=== PATIENT | male | born 1945 | race American Indian/Alaskan Native ===

== ENCOUNTER 2016-10-19 08:55 | Inpatient (IN) | payer MEDICAID, MEDICARE ==
[2016-10-19 09:13] VITALS: BMI 29.0
[2016-10-19 09:59] LABS: BASO # 0.1 K/uL (0.0-0.2); BASO % 1.1 % (0.0-2.0); EOS # 0.1 K/uL (0.0-0.7); HEMATOCRIT 41.3 % (35.0-51.0); LYMPH # 1.1 K/uL (1.0-4.3); LYMPH % 22.5 % (20.0-40.0); MEAN CELL VOLUME 87.1 fL (80.0-94.0); MEAN CORPUSCULAR HEMOGLOBIN 27.8 pg (27.0-31.0); MEAN CORPUSCULAR HGB CONC 31.9 g/dL (33.0-37.0); MONO # 0.3 K/uL (0.0-0.8); MONO % 6.4 % (0.0-10.0); NRBC % 0.1 % (0.0-2.0); WHITE BLOOD COUNT 4.8 K/uL (4.8-10.8)
[2016-10-19 10:04] LABS: URINE BILIRUBIN NEGATIVE (NEGATIVE); URINE BLOOD NEGATIVE (NEGATIVE); URINE COLOR Colorless (YELLOW); URINE GLUCOSE (UA) NORMAL (Normal); URINE KETONE NEGATIVE (NEGATIVE); URINE LEUKOCYTE ESTERASE NEG Leu/uL (Negative); URINE PROTEIN NEGATIVE (NEGATIVE); URINE UROBILINOGEN NORMAL mg/dL (0.2-1.0)
[2016-10-19 10:06] LABS: CHLORIDE 105 mmol/L (98-107); POTASSIUM 4.2 mmol/L (3.6-5.2); SODIUM 142 mmol/L (132-148)
[2016-10-19 10:07] LABS: INR 1.1
[2016-10-19 10:08] LABS: AST/SGOT 31 U/L (17-59); CARBON DIOXIDE 29 mmol/L (22-30); GFR AFRICAN-AMERICAN > 60
[2016-10-19 10:09] LABS: ALB/GLOB RATIO 1.2 (1.0-2.1); ALKALINE PHOSPHATASE 90 U/L (38-126); ALT/SGPT 61 U/L (21-72); BLOOD UREA NITROGEN 11 mg/dL (9-20); CALCIUM 8.7 mg/dl (8.6-10.4); GLUCOSE,RANDOM 91 mg/dL (75-110); TOTAL PROTEIN 5.7 g/dL (6.3-8.3)
--- NOTE | 2016-10-19 10:41 | RAD ---
HISTORY: SOB COMPARISON: None available. TECHNIQUE: Chest, one view. FINDINGS: LUNGS: Pulmonary venous congestion. Bilateral patchy opacities with central predominance, may be related to edema or infection. Correlate clinically. Please note that chest x-ray has limited sensitivity for the detection of pulmonary masses. PLEURA: No significant pleural effusion identified. No definite pneumothorax . CARDIOVASCULAR: Cardiomegaly. OSSEOUS STRUCTURES: Degenerative changes. VISUALIZED UPPER ABDOMEN: Unremarkable. OTHER FINDINGS: None. IMPRESSION: Pulmonary venous congestion. Bilateral patchy opacities with central predominance, may be related to edema or infection. Cardiomegaly. Correlate clinically.
--- NOTE | 2016-10-19 11:23 | C.PDOC ---
History Of Present Illness Patient is a 71 y/o male presents to the ED for evaluation of shortness of breath for the last 2 days. Patient also complains of bilateral lower extremity edema for the past month. Patient reports being seen at [facility] where he had echocardiogram done which showed EF 20%. Otherwise, denies any chest pain, headache, fever, chills, cough, back pain, or any other associated symptoms at this time. Chief Complaint (Nursing): Shortness Of Breath History Per: Patient History/Exam Limitations: no limitations Onset/Duration Of Symptoms: Days (2) Current Symptoms Are (Timing): Still Present Severity: None Pain Scale Rating Of: 0 Associated Symptoms: Ankle/Leg Swelling. denies: Fever, Chills, Sweating, Chest Pain, Bloody Cough, Productive Cough, Heart Racing, Leg/Calf Pain, Dizziness, Light-headedness, Anxiety, Tingling In Hands Or Face, Musle Spasms In Hands Or Feet Recent travel outside of the [place]: No Additional History Per: Patient Past Medical History Reviewed: Historical Data, Nursing Documentation, Vital Signs Vital Signs: Last Vital Signs Temp 98.7 F 10/19/16 13:43 Pulse 91 H 10/19/16 13:43 Resp 18 10/19/16 13:43 BP 141/99 H 10/19/16 13:43 Pulse Ox 99 10/19/16 13:43 - Medical History PMH: HTN, Hypercholesterolemia Family History: States: Unknown Family Hx - Social History Hx Alcohol Use: No Hx Substance Use: No - Immunization History Hx Tetanus Toxoid Vaccination: No Hx Influenza Vaccination: No Hx Pneumococcal Vaccination: No Review Of Systems Except As Marked, All Systems Reviewed And Found Negative. Constitutional: Negative for: Fever, Chills Cardiovascular: Positive for: Edema (bilateral lower extremity ). Negative for : Chest Pain, Palpitations, Light Headedness Respiratory: Positive for: Shortness of Breath. Negative for: Cough, Hemoptysis , Pleuritic Pain, Sputum Gastrointestinal: Negative for: Nausea, Vomiting Neurological: Negative for: Weakness, Numbness Physical Exam - Physical Exam Appears: Non-toxic, No Acute Distress Skin: Normal Color, Warm, Dry Head: Atraumatic, Normacephalic Eye(s): bilateral: Normal Inspection Oral Mucosa: Moist Neck: Normal ROM, Supple Chest: Symmetrical, No Tenderness Cardiovascular: Rhythm Regular, No Murmur Respiratory: No Rales, No Wheezing, Other (crackles to bases of lungs) Gastrointestinal/Abdominal: Soft, No Tenderness, No Distention Extremity: Normal ROM, No Tenderness, Pedal Edema (+2 edema to bilateral lower extremity), No Calf Tenderness, Capillary Refill (< 2 sec.), No Deformity Extremity: Bilateral: Atraumatic, Normal Color And Temperature, Normal ROM Pulses: Left Dorsalis Pedis: Normal, Right Dorsalis Pedis: Normal Neurological/Psych: Oriented x3, Normal Speech, Normal Cognition, Normal Motor, Normal Sensation ED Course And Treatment - Laboratory Results Result Diagrams: 10/19/16 09:54 10/19/16 09:54 ECG: Interpreted By Me, Viewed By Me ECG Rhythm: Sinus Rhythm ECG Interpretation: No Changes From Prior (11/28/14) Rate From EC (bpm) O2 Sat by Pulse Oximetry: 97 (RA) Pulse Ox Interpretation: Normal - Other Rad CXR X-Ray: Viewed By Me, Read By Radiologist Interpretation: HISTORY: SOB. COMPARISON: None available. TECHNIQUE: Chest , one view. FINDINGS: LUNGS: Pulmonary venous congestion. Bilateral patchy opacities with central predominance, may be related to edema or infection. Correlate clinically. Please note that chest x-ray has limited sensitivity for the detection of pulmonary masses. PLEURA: No significant pleural effusion identified. No definite pneumothorax . CARDIOVASCULAR: Cardiomegaly. OSSEOUS STRUCTURES: Degenerative changes. VISUALIZED UPPER ABDOMEN: Unremarkable. OTHER FINDINGS: None. IMPRESSION: Pulmonary venous congestion. Bilateral patchy opacities with central predominance, may be related to edema or infection. Cardiomegaly. Correlate clinically. Progress Note: EKG, CXR, blood work, urinalysis ordered and reviewed. Patient was treated with Lasix IVP. On re-eval, patient is resting comfortably with no wheezing, chest pain, or retractions. Oxygen saturation remains stable. Patient is alert and oriented x 3. Case was d/w who accepted patient to [facility] for observation. Disposition - Disposition Disposition: HOSPITALIZED Disposition Time: 11:30 Condition: FAIR - Clinical Impression Clinical Impression: CHF (congestive heart failure) - PA / MANAGER CORPORATE COMMUNICATIONS / Resident Statement MD/DO has reviewed & agrees with the documentation as recorded. - Scribe Statement The provider has reviewed the documentation as recorded by the Kimaniibtenzin Valdovinos All medical record entries made by the Scribe were at my direction and personally dictated by me. I have reviewed the chart and agree that the record accurately reflects my personal performance of the history, physical exam, medical decision making, and the department course for this patient. I have also personally directed, reviewed, and agree with the discharge instructions and disposition. Decision To Admit - Pt Status Changed To: Hospital Disposition Of: Observation - . Bed Request Type: Telemetry Admitting Physician: Haydee Valdovinos Patient Diagnosis: CHF (congestive heart failure)
--- NOTE | 2016-10-19 16:39 | CP.PCM.HP ---
Past Patient History - Past Social History Smoking Status: Never Smoked - CARDIAC Hx Hypercholesterolemia: Yes Hx Hypertension: Yes - PSYCHIATRIC Hx Substance Use: No - SURGICAL HISTORY Hx Surgeries: No - ANESTHESIA Hx Anesthesia: No Meds Allergies/Adverse Reactions: Allergies Allergy/AdvReac Type Severity Reaction Status Date / Time No Known Allergies Allergy Verified 10/19/16 09:09 Physical Exam - Constitutional Appears: Well - Head Exam Head Exam: ATRAUMATIC, NORMAL INSPECTION, NORMOCEPHALIC - Eye Exam Eye Exam: EOMI, Normal appearance, PERRL Pupil Exam: NORMAL ACCOMODATION, PERRL - ENT Exam ENT Exam: Mucous Membranes Moist, Normal Exam - Neck Exam Neck exam: Positive for: Normal Inspection - Respiratory Exam Respiratory Exam: Decreased Breath Sounds - Cardiovascular Exam Cardiovascular Exam: REGULAR RHYTHM, +S1, +S2 - GI/Abdominal Exam GI & Abdominal Exam: Diminished Bowel Sounds, Soft - Rectal Exam Rectal Exam: Deferred Results - Vital Signs Recent Vital Signs: Last Vital Signs Temp 98.1 F 10/19/16 16:32 Pulse 103 H 10/19/16 16:32 Resp 24 10/19/16 16:32 BP 134/98 H 10/19/16 16:32 Pulse Ox 98 10/19/16 16:32 - Labs Result Diagrams: 10/19/16 09:54 10/19/16 09:54
[2016-10-19] MEDS ORDERED: Enoxaparin 40 mg Syringe SC STA (17:27)
[2016-10-19] MEDS ORDERED: Enoxaparin 40 mg Syringe ONE (17:52)
--- NOTE | 2016-10-19 18:26 | CARD ---
APPROVED REPORT EKG Measurement Heart [id number] MI [id number] <Conclusion> Poor data quality, interpretation may be adversely affected Normal sinus rhythm Possible Left atrial enlargement Left ventricular hypertrophy T wave abnormality, consider lateral ischemia Prolonged QT Abnormal ECG
[2016-10-20] MEDS ORDERED: Albuterol-Ipratrop 3 mg / 0.5 (3 ml) UD INH STA (03:02)
--- NOTE | 2016-10-20 07:30 | CP.PCM.CON ---
<KianaKeatonaminataBladimir tinajero - Last Filed: 10/20/16 07:31> History of Present Illness - History of Present Illness History of Present Illness: CC: SOB HPI: This is a 71yo M with a PMhx of IGT, HTN, ischemic cardiomyopathy w/ CHF systolic dysfunction w/ systolic EF of 20% as per ID hospital in [facility] [place] who is coming to the hospital after progressive shortness of breath on exertion these past few months. The patient states he used to receive medical care in [facility] at the ID, but recently started going to doctors here in [place] because his girlfriend is currently in a mcfp here. He normally can walk 10-12 blocks, and up 2-3 flights of stairs without getting short of breath but has been becoming increasingly bedbound these past few months. Patient states he used to take carvedilol in [place], but has not taken it since he switched care here. He does not remember the dose. He reportedly feels "much better today and wants to go home". He denies all symptoms; no DEVI, CP, SOB, abdominal pain, N/V/D Pmhx: as above Meds: Furosemide, Atorvastatin, Lisinopril, Aspirin, Potassium Allergies: None Surgeries: Denies FamilyHx: CAD, HTN, DM Social: , lives in [place], lives alone independent in all IADL and ADL, normally physically capable of 10-12 blocks and 2-3 flights of stairs Past Patient History - Infectious Disease Hx of Infectious Diseases: None - Past Medical History & Family History Past Medical History?: Yes - Past Social History Smoking Status: Never Smoked - CARDIAC Hx Cardiac Disorders: Yes Hx Congestive Heart Failure: Yes Hx Hypercholesterolemia: Yes Hx Hypertension: Yes - PULMONARY Hx Respiratory Disorders: No - NEUROLOGICAL Hx Neurological Disorder: No - HEENT Hx HEENT Problems: No - RENAL Hx Chronic Kidney Disease: No - ENDOCRINE/METABOLIC Hx Endocrine Disorders: No - HEMATOLOGICAL/ONCOLOGICAL Hx Blood Disorders: No - INTEGUMENTARY Hx Dermatological Problems: No - MUSCULOSKELETAL/RHEUMATOLOGICAL Hx Musculoskeletal Disorders: No Hx Falls: No - GASTROINTESTINAL Hx Gastrointestinal Disorders: No - GENITOURINARY/GYNECOLOGICAL Hx Genitourinary Disorders: No - PSYCHIATRIC Hx Psychophysiologic Disorder: No Hx Substance Use: No - SURGICAL HISTORY Hx Surgeries: No - ANESTHESIA Hx Anesthesia: No Meds Allergies/Adverse Reactions: Allergies Allergy/AdvReac Type Severity Reaction Status Date / Time No Known Allergies Allergy Verified 10/19/16 09:09 - Medications Medications: Current Medications Aspirin (Ecotrin) 81 mg PO DAILY [facility] Enoxaparin Sodium (Lovenox) 40 mg SC DAILY [facility] Furosemide (Lasix) 40 mg IVP DAILY [facility] Lisinopril (Zestril) 2.5 mg PO DAILY [facility] Potassium Chloride (Klor-Con 10) 10 meq PO DAILY [facility] Rosuvastatin Calcium (Crestor) 40 mg PO HS [facility] Last Admin: 10/19/16 21:40 Dose: 40 mg Physical Exam - Constitutional Appears: Non-toxic - Head Exam Head Exam: ATRAUMATIC - Eye Exam Eye Exam: EOMI Pupil Exam: PERRL - ENT Exam ENT Exam: Mucous Membranes Moist - Respiratory Exam Respiratory Exam: NORMAL BREATHING PATTERN. absent: Chest Wall Tenderness, Decreased Breath Sounds, Clear to Auscultation Bilateral (crackles b/l lower lobes), Rhonchi, Wheezes, Respiratory Distress, Stridor - Cardiovascular Exam Cardiovascular Exam: REGULAR RHYTHM, +S1, +S2 - GI/Abdominal Exam GI & Abdominal Exam: Normal Bowel Sounds, Soft - Extremities Exam Extremities exam: Positive for: pedal edema. Negative for: calf tenderness - Neurological Exam Neurological exam: Alert, Oriented x3 - Psychiatric Exam Psychiatric exam: Normal Affect - Skin Skin Exam: Normal Color Results - Vital Signs Recent Vital Signs: Last Vital Signs Temp 98 F 10/20/16 00:00 Pulse 90 10/20/16 01:00 Resp 20 10/20/16 00:00 BP 144/98 H 10/20/16 03:08 Pulse Ox 95 10/20/16 00:00 - Labs Result Diagrams: 10/19/16 09:54 10/19/16 09:54 Labs: Laboratory Results - last 24 hr 10/19/16 18:39 Total Creatine Kinase 189 H CK-MB (Mass) 3.01 Troponin I, Quant 0.0630 Assessment & Plan - Assessment and Plan (Free Text) Assessment: 71yo M admitted to the hospital for acute on chronic CHF exacerbation Acute on Chronic CHF exacerbation; systolic dysfunction reported 20% EF -Lifevest recommended given patients high baseline functional capacity if EF indeed 20% -repeat echo as we have none on file here; f/u results -patient would benefit from low dose carvedilol that he was previously on; benefit in systolic CHF proven; will add -continue with GINO, Aspirin, and statin given ACS in the past -CRISTINA have been trending down; ACS acutely ruled out -will continue with all other medications Will continue to follow Will discuss with attending Dr. Edie Beard PGY2 Cardiology Note for Dr. Irizarry <Lizet Irizarry - Last Filed: 10/21/16 07:41> Meds - Medications Medications: Current Medications Aspirin (Ecotrin) 81 mg PO DAILY [facility] Last Admin: 10/20/16 10:26 Dose: 81 mg Carvedilol (Coreg) 3.125 mg PO BID [facility] Last Admin: 10/20/16 17:15 Dose: 3.125 mg Enoxaparin Sodium (Lovenox) 40 mg SC DAILY [facility] Last Admin: 10/20/16 10:27 Dose: 40 mg Furosemide (Lasix) 40 mg IVP DAILY [facility] Last Admin: 10/20/16 10:26 Dose: 40 mg Lisinopril (Zestril) 2.5 mg PO DAILY [facility] Last Admin: 10/20/16 10:26 Dose: 2.5 mg Potassium Chloride (Klor-Con 10) 10 meq PO DAILY [facility] Last Admin: 10/20/16 10:26 Dose: 10 meq Rosuvastatin Calcium (Crestor) 40 mg PO HS [facility] Last Admin: 10/20/16 21:02 Dose: 40 mg Results - Vital Signs Recent Vital Signs: Last Vital Signs Temp 98 F 10/20/16 23:45 Pulse 69 10/21/16 01:00 Resp 20 10/20/16 23:45 BP 122/80 10/20/16 23:45 Pulse Ox 96 10/20/16 23:45 - Labs Result Diagrams: 10/19/16 09:54 10/19/16 09:54 Labs: Laboratory Results - last 24 hr 10/20/16 11:14 Total Creatine Kinase 135 CK-MB (Mass) 2.46 Troponin I, Quant 0.0560 Attending/Attestation - Attestation I have personally seen and examined this patient.: No I have fully participated in the care of the patient.: Yes I have reviewed all pertinent clinical information: Yes
[2016-10-20] MEDS: Potassium Chloride 10 mEq ER Tab PO SCH (10:26)
[2016-10-20] MEDS: Enoxaparin 40 mg Syringe SC SCH (10:27)
--- NOTE | 2016-10-20 14:43 | CARD ---
APPROVED REPORT EXAM: Two-dimensional and M-mode echocardiogram with Doppler and color Doppler. Other Information Quality : GoodRhythm : NSR INDICATION Congestive Heart Failure PNEUMONIA 2D DIMENSIONS IVSd1.2 (0.7-1.1cm)LVDd7.2 (3.9-5.9cm) LVOT Diameter2.3 (1.8-2.4cm)PWd1.1 (0.7-1.1cm) RVOT Diameter2.3 cmLVDs6.4 (2.5-4.0cm) FS (%) 10.6 %LVEF (%)22.3 (>50%) M-Mode DIMENSIONS Left Atrium (MM)5.14 (2.5-4.0cm)IVSd1.40 (0.7-1.1cm) Aortic Root3.88 (2.2-3.7cm)LVDd3.72 (4.0-5.6cm) Aortic Cusp Exc.2.21 (1.5-2.0cm)PWd1.25 (0.7-1.1cm) FS (%) 75 %LVDs6.51 (2.0-3.8cm) Aortic Valve LVOT Peak Zmzxhgug78.7cm/sLVOT VTI16.08cm Mitral Valve MV E Phfxknuv70.9cm/sMV A Ckglgvzi77.4cm/sE/A ratio0.4 TDI E/Lateral E'0.0E/Medial E'0.0 Pulmonary Valve RVOT VTI10.9cm Tricuspid Valve TR Peak Rpnmpccd140ly/sTR Peak Gr.[id number] LEFT VENTRICLE The Left Ventricle is severely dilated. There is borderline concentric left ventricular hypertrophy. The systolic function is severely impaired. There is global hypokinesis of the left ventricle. Transmitral Doppler flow pattern is Grade I-abnormal relaxation pattern. Spontaneous contrast is noted consistent with the low flow state. RIGHT VENTRICLE The right ventricle is normal size. There is normal right ventricular wall thickness. The right ventricular systolic function is normal. ATRIA The left atrium is moderately dilated. The right atrium size is normal. a PFO with left to right flow AORTIC VALVE There is trace aortic regurgitation. MITRAL VALVE The mitral valve is moderately thickened but opens well. Mitral regurgitation is moderate to severe. PULMONIC VALVE There is mild pulmonic valvular regurgitation. GREAT VESSELS The aortic root is normal in size. The IVC is normal in size and collapses >50% with inspiration. <Conclusion> The Left Ventricle is severely dilated. There is borderline concentric left ventricular hypertrophy. The systolic function is severely impaired. There is global hypokinesis of the left ventricle. Spontaneous contrast is noted consistent with the low flow state. Transmitral Doppler flow pattern is Grade I-abnormal relaxation pattern. Mitral regurgitation is moderate to severe. a PFO with left to right flow
--- NOTE | 2016-10-20 18:00 | CP.PCM.PN ---
Subjective - Date & Time of Evaluation Date of Evaluation: 10/20/16 Time of Evaluation: 11:20 - Subjective Subjective: clinically same Objective - Vital Signs/Intake and Output Vital Signs (last 24 hours): Temp Pulse Resp BP Pulse Ox 98.5 F 78 20 128/82 97 10/20/16 16:17 10/20/16 16:17 10/20/16 16:17 10/20/16 16:17 10/20/16 16:17 Intake and Output: 10/20/16 10/20/16 06:59 18:59 Intake Total 300 460 Output Total 2000 Balance 300 -1540 - Medications Medications: Current Medications Aspirin (Ecotrin) 81 mg PO DAILY [facility] Last Admin: 10/20/16 10:26 Dose: 81 mg Carvedilol (Coreg) 3.125 mg PO BID [facility] Last Admin: 10/20/16 17:15 Dose: 3.125 mg Enoxaparin Sodium (Lovenox) 40 mg SC DAILY [facility] Last Admin: 10/20/16 10:27 Dose: 40 mg Furosemide (Lasix) 40 mg IVP DAILY [facility] Last Admin: 10/20/16 10:26 Dose: 40 mg Lisinopril (Zestril) 2.5 mg PO DAILY [facility] Last Admin: 10/20/16 10:26 Dose: 2.5 mg Potassium Chloride (Klor-Con 10) 10 meq PO DAILY [facility] Last Admin: 10/20/16 10:26 Dose: 10 meq Rosuvastatin Calcium (Crestor) 40 mg PO HS [facility] Last Admin: 10/19/16 21:40 Dose: 40 mg - Labs Labs: PT 12.5 SECONDS (9.7-12.2) H 10/19/16 09:54 INR 1.1 10/19/16 09:54 APTT 34 SECONDS (21-34) 10/19/16 09:54 - Constitutional Appears: Well - Head Exam Head Exam: ATRAUMATIC, NORMAL INSPECTION, NORMOCEPHALIC - Eye Exam Eye Exam: EOMI, Normal appearance, PERRL Pupil Exam: NORMAL ACCOMODATION, PERRL - ENT Exam ENT Exam: Mucous Membranes Moist, Normal Exam - Neck Exam Neck Exam: Full ROM, Normal Inspection. absent: Lymphadenopathy - Respiratory Exam Respiratory Exam: Decreased Breath Sounds - Cardiovascular Exam Cardiovascular Exam: REGULAR RHYTHM, +S1, +S2 - GI/Abdominal Exam GI & Abdominal Exam: Soft, Diminished Bowel Sounds - Rectal Exam Rectal Exam: Deferred
--- NOTE | 2016-10-21 08:50 | CP.PCM.CON ---
<KianaKeatonaminataBldaimir tinajero - Last Filed: 10/21/16 08:51> History of Present Illness - History of Present Illness History of Present Illness: CC: SOB HPI: This is a 71yo M with a PMhx of IGT, HTN, ischemic cardiomyopathy w/ CHF systolic dysfunction w/ systolic EF of 20% as per [facility] [facility] who is coming to the hospital after progressive shortness of breath on exertion these past few months. The patient states he used to receive medical care in [facility] at the [place], but recently started going to doctors here in [place] because his girlfriend is currently in a snf here. He normally can walk 10-12 blocks, and up 2-3 flights of stairs without getting short of breath but has been becoming increasingly bedbound these past few months. Patient states he used to take carvedilol in [place], but has not taken it since he switched care here. He does not remember the dose. He reportedly feels "much better today and wants to go home". He denies all symptoms; no DEVI, CP, SOB, abdominal pain, N/V/D Pmhx: as above Meds: Furosemide, Atorvastatin, Lisinopril, Aspirin, Potassium Allergies: None Surgeries: Denies FamilyHx: CAD, HTN, DM Social: , lives in [place], lives alone independent in all IADL and ADL, normally physically capable of 10-12 blocks and 2-3 flights of stairs Review of Systems - Constitutional Constitutional: As Per HPI Past Patient History - Infectious Disease Hx of Infectious Diseases: None - Past Medical History & Family History Past Medical History?: Yes - Past Social History Smoking Status: Never Smoked - CARDIAC Hx Cardiac Disorders: Yes Hx Congestive Heart Failure: Yes Hx Hypercholesterolemia: Yes Hx Hypertension: Yes - PULMONARY Hx Respiratory Disorders: No - NEUROLOGICAL Hx Neurological Disorder: No - HEENT Hx HEENT Problems: No - RENAL Hx Chronic Kidney Disease: No - ENDOCRINE/METABOLIC Hx Endocrine Disorders: No - HEMATOLOGICAL/ONCOLOGICAL Hx Blood Disorders: No - INTEGUMENTARY Hx Dermatological Problems: No - MUSCULOSKELETAL/RHEUMATOLOGICAL Hx Musculoskeletal Disorders: No Hx Falls: No - GASTROINTESTINAL Hx Gastrointestinal Disorders: No - GENITOURINARY/GYNECOLOGICAL Hx Genitourinary Disorders: No - PSYCHIATRIC Hx Psychophysiologic Disorder: No Hx Substance Use: No - SURGICAL HISTORY Hx Surgeries: No - ANESTHESIA Hx Anesthesia: No Meds Home Medications: Home Medication List Medication Instructions Recorded Confirmed Type Carvedilol [Coreg] 6.25 mg PO BID #60 tab 10/21/16 Rx Sacubitril/Valsartan [Entresto 24 1 tab PO BID #60 tablet 10/21/16 Rx mg-26 mg] Allergies/Adverse Reactions: Allergies Allergy/AdvReac Type Severity Reaction Status Date / Time No Known Allergies Allergy Verified 10/19/16 09:09 - Medications Medications: Current Medications Aspirin (Ecotrin) 81 mg PO DAILY [facility] Last Admin: 10/20/16 10:26 Dose: 81 mg Carvedilol (Coreg) 3.125 mg PO BID [facility] Last Admin: 10/20/16 17:15 Dose: 3.125 mg Enoxaparin Sodium (Lovenox) 40 mg SC DAILY [facility] Last Admin: 10/20/16 10:27 Dose: 40 mg Furosemide (Lasix) 40 mg IVP DAILY [facility] Last Admin: 10/20/16 10:26 Dose: 40 mg Potassium Chloride (Klor-Con 10) 10 meq PO DAILY [facility] Last Admin: 10/20/16 10:26 Dose: 10 meq Rosuvastatin Calcium (Crestor) 40 mg PO HS [facility] Last Admin: 10/20/16 21:02 Dose: 40 mg Sacubitril/Valsartan (Entresto 24 Mg-26 Mg) 1 tab PO BID [facility] Physical Exam - Constitutional Appears: Well - Eye Exam Eye Exam: EOMI - ENT Exam ENT Exam: Mucous Membranes Moist - Respiratory Exam Respiratory Exam: Clear to Auscultation Bilateral - Cardiovascular Exam Cardiovascular Exam: REGULAR RHYTHM - GI/Abdominal Exam GI & Abdominal Exam: Normal Bowel Sounds - Extremities Exam Extremities exam: Negative for: calf tenderness - Back Exam Back exam: absent: CVA tenderness (L), CVA tenderness (R) - Neurological Exam Neurological exam: Alert, Oriented x3 - Psychiatric Exam Psychiatric exam: Normal Affect - Skin Skin Exam: Warm Results - Vital Signs Recent Vital Signs: Last Vital Signs Temp 98.1 F 10/21/16 08:01 Pulse 83 10/21/16 08:01 Resp 20 10/21/16 08:01 BP 139/94 H 10/21/16 08:01 Pulse Ox 97 10/21/16 08:01 - Labs Result Diagrams: 10/19/16 09:54 10/19/16 09:54 Labs: Laboratory Results - last 24 hr 10/20/16 11:14 Total Creatine Kinase 135 CK-MB (Mass) 2.46 Troponin I, Quant 0.0560 Assessment & Plan - Assessment and Plan (Free Text) Assessment: 71yo M admitted to the hospital for acute on chronic CHF exacerbation Acute on Chronic CHF exacerbation; systolic dysfunction reported 20% EF -Lifevest recommended and rep called; patient needs to go home with life vest -repeat echo shows EF of 20% with severe dilated cardiomyopathy with global hypokinesis -ACS acutely ruled out -will start patient on the following -Entresto 24mg BID -Carvedilol 6.25mg BID Patient will continue all of the follow medications from prior -Aspirin 81mg Daily -Lasix 20mg PO Daily -Atorvastatin 80mg PO daily -Potassium Case discussed and seen with Dr. Edie Beard PGY2 Cardiology Note for Dr. Irizarry <Lizet Irizarry - Last Filed: 10/21/16 09:09> Meds - Medications Medications: Current Medications Aspirin (Ecotrin) 81 mg PO DAILY [facility] Last Admin: 10/20/16 10:26 Dose: 81 mg Carvedilol (Coreg) 3.125 mg PO BID [facility] Last Admin: 10/20/16 17:15 Dose: 3.125 mg Enoxaparin Sodium (Lovenox) 40 mg SC DAILY [facility] Last Admin: 10/20/16 10:27 Dose: 40 mg Furosemide (Lasix) 40 mg IVP DAILY [facility] Last Admin: 10/20/16 10:26 Dose: 40 mg Potassium Chloride (Klor-Con 10) 10 meq PO DAILY [facility] Last Admin: 10/20/16 10:26 Dose: 10 meq Rosuvastatin Calcium (Crestor) 40 mg PO HS [facility] Last Admin: 10/20/16 21:02 Dose: 40 mg Sacubitril/Valsartan (Entresto 24 Mg-26 Mg) 1 tab PO BID [facility] Results - Vital Signs Recent Vital Signs: Last Vital Signs Temp 98.1 F 10/21/16 08:01 Pulse 83 10/21/16 08:01 Resp 20 10/21/16 08:01 BP 139/94 H 10/21/16 08:01 Pulse Ox 97 10/21/16 08:01 - Labs Result Diagrams: 10/19/16 09:54 10/19/16 09:54 Labs: Laboratory Results - last 24 hr 10/20/16 11:14 Total Creatine Kinase 135 CK-MB (Mass) 2.46 Troponin I, Quant 0.0560 Attending/Attestation - Attestation I have personally seen and examined this patient.: Yes I have fully participated in the care of the patient.: Yes I have reviewed all pertinent clinical information: Yes Notes (Text): 10/21/16 09:07 Pt will be dc'd with life vest will treat with optimal chf meds for 3 months with entresto as well Pt will need sudden cardiac prophylaxis with ICD Vest for dilated cardiomyopathy ef calculated to be 20-25 percent
[2016-10-21] MEDS: Potassium Chloride 10 mEq ER Tab PO SCH (09:38)
[2016-10-21] MEDS: Enoxaparin 40 mg Syringe SC SCH (09:39)
[2016-10-21] MEDS: Sacubitril/Valsartan 24-26mg Tab PO SCH ×2 (10:44→17:17)
--- NOTE | 2016-10-21 16:33 | CP.PCM.PN ---
Subjective - Date & Time of Evaluation Date of Evaluation: 10/21/16 Time of Evaluation: 08:40 - Subjective Subjective: clinically same Objective - Vital Signs/Intake and Output Vital Signs (last 24 hours): Temp Pulse Resp BP Pulse Ox 98.1 F 93 H 20 128/89 97 10/21/16 15:14 10/21/16 16:11 10/21/16 15:14 10/21/16 15:14 10/21/16 15:14 Intake and Output: 10/21/16 10/21/16 06:59 18:59 Intake Total 600 Output Total 300 Balance 300 - Medications Medications: Current Medications Aspirin (Ecotrin) 81 mg PO DAILY [facility] Last Admin: 10/21/16 10:46 Dose: 81 mg Carvedilol (Coreg) 3.125 mg PO BID [facility] Last Admin: 10/21/16 09:38 Dose: 3.125 mg Enoxaparin Sodium (Lovenox) 40 mg SC DAILY [facility] Last Admin: 10/21/16 09:39 Dose: 40 mg Furosemide (Lasix) 40 mg IVP DAILY [facility] Last Admin: 10/21/16 09:38 Dose: 40 mg Potassium Chloride (Klor-Con 10) 10 meq PO DAILY [facility] Last Admin: 10/21/16 09:38 Dose: 10 meq Rosuvastatin Calcium (Crestor) 40 mg PO HS [facility] Last Admin: 10/20/16 21:02 Dose: 40 mg Sacubitril/Valsartan (Entresto 24 Mg-26 Mg) 1 tab PO BID [facility] Last Admin: 10/21/16 10:44 Dose: 1 tab - Labs Labs: PT 12.5 SECONDS (9.7-12.2) H 10/19/16 09:54 INR 1.1 10/19/16 09:54 APTT 34 SECONDS (21-34) 10/19/16 09:54 - Constitutional Appears: Well - Head Exam Head Exam: ATRAUMATIC, NORMAL INSPECTION, NORMOCEPHALIC - Eye Exam Eye Exam: EOMI, Normal appearance, PERRL Pupil Exam: NORMAL ACCOMODATION, PERRL - ENT Exam ENT Exam: Mucous Membranes Moist, Normal Exam - Neck Exam Neck Exam: Full ROM, Normal Inspection. absent: Lymphadenopathy - Respiratory Exam Respiratory Exam: Decreased Breath Sounds - Cardiovascular Exam Cardiovascular Exam: REGULAR RHYTHM, +S1, +S2 - GI/Abdominal Exam GI & Abdominal Exam: Soft, Diminished Bowel Sounds - Rectal Exam Rectal Exam: Deferred
[2016-10-22] MEDS: Enoxaparin 40 mg Syringe SC SCH (10:45)
[2016-10-22] MEDS: Potassium Chloride 10 mEq ER Tab PO SCH (10:45)
[2016-10-22] MEDS: Sacubitril/Valsartan 24-26mg Tab PO SCH ×2 (10:45→18:27)
--- NOTE | 2016-10-22 18:59 | CP.PCM.PN ---
Subjective - Date & Time of Evaluation Date of Evaluation: 10/22/16 Time of Evaluation: 09:20 - Subjective Subjective: clinically same Objective - Vital Signs/Intake and Output Vital Signs (last 24 hours): Temp Pulse Resp BP Pulse Ox 98.1 F 76 20 114/73 97 10/22/16 15:13 10/22/16 18:28 10/22/16 15:13 10/22/16 18:28 10/22/16 15:13 Intake and Output: 10/22/16 10/22/16 06:59 18:59 Intake Total 460 Balance 460 - Medications Medications: Current Medications Aspirin (Ecotrin) 81 mg PO DAILY [facility] Last Admin: 10/22/16 10:45 Dose: 81 mg Carvedilol (Coreg) 3.125 mg PO BID [facility] Last Admin: 10/22/16 18:27 Dose: 3.125 mg Enoxaparin Sodium (Lovenox) 40 mg SC DAILY [facility] Last Admin: 10/22/16 10:45 Dose: 40 mg Furosemide (Lasix) 40 mg IVP DAILY [facility] Last Admin: 10/22/16 10:44 Dose: 40 mg Potassium Chloride (Klor-Con 10) 10 meq PO DAILY [facility] Last Admin: 10/22/16 10:45 Dose: 10 meq Rosuvastatin Calcium (Crestor) 40 mg PO HS [facility] Last Admin: 10/21/16 21:12 Dose: 40 mg Sacubitril/Valsartan (Entresto 24 Mg-26 Mg) 1 tab PO BID [facility] Last Admin: 10/22/16 18:27 Dose: 1 tab - Labs Labs: PT 12.5 SECONDS (9.7-12.2) H 10/19/16 09:54 INR 1.1 10/19/16 09:54 APTT 34 SECONDS (21-34) 10/19/16 09:54 - Constitutional Appears: Well - Head Exam Head Exam: ATRAUMATIC, NORMAL INSPECTION, NORMOCEPHALIC - Eye Exam Eye Exam: EOMI, Normal appearance, PERRL Pupil Exam: NORMAL ACCOMODATION, PERRL - ENT Exam ENT Exam: Mucous Membranes Moist, Normal Exam - Neck Exam Neck Exam: Full ROM, Normal Inspection. absent: Lymphadenopathy - Respiratory Exam Respiratory Exam: Decreased Breath Sounds - Cardiovascular Exam Cardiovascular Exam: REGULAR RHYTHM, +S1, +S2 - GI/Abdominal Exam GI & Abdominal Exam: Soft, Diminished Bowel Sounds - Rectal Exam Rectal Exam: Deferred
[2016-10-23 08:24] VITALS: TEMP 98; O2SAT 98
[2016-10-23 10:13] VITALS: BP 136/93; RESP 91
[2016-10-23] MEDS: Sacubitril/Valsartan 24-26mg Tab PO SCH (10:13)
[2016-10-23] MEDS: Enoxaparin 40 mg Syringe SC SCH (10:13)
[2016-10-23] MEDS: Potassium Chloride 10 mEq ER Tab PO SCH (10:14)
[2016-10-23 12:13] VITALS: PULSE 91
--- NOTE | 2016-10-23 14:42 | CP.PCM.PN ---
Subjective - Date & Time of Evaluation Date of Evaluation: 10/23/16 Time of Evaluation: 09:40 - Subjective Subjective: clinically same Objective - Vital Signs/Intake and Output Vital Signs (last 24 hours): Temp Pulse Resp BP Pulse Ox 98 F 91 H 91 H 136/93 H 98 10/23/16 08:23 10/23/16 12:00 10/23/16 10:12 10/23/16 10:13 10/23/16 08:23 - Medications Medications: Current Medications Aspirin (Ecotrin) 81 mg PO DAILY [facility] Last Admin: 10/23/16 10:13 Dose: 81 mg Carvedilol (Coreg) 3.125 mg PO BID [facility] Last Admin: 10/23/16 10:14 Dose: 3.125 mg Enoxaparin Sodium (Lovenox) 40 mg SC DAILY [facility] Last Admin: 10/23/16 10:13 Dose: 40 mg Furosemide (Lasix) 40 mg IVP DAILY [facility] Last Admin: 10/23/16 10:13 Dose: 40 mg Potassium Chloride (Klor-Con 10) 10 meq PO DAILY [facility] Last Admin: 10/23/16 10:14 Dose: 10 meq Rosuvastatin Calcium (Crestor) 40 mg PO HS [facility] Last Admin: 10/22/16 21:56 Dose: 40 mg Sacubitril/Valsartan (Entresto 24 Mg-26 Mg) 1 tab PO BID [facility] Last Admin: 10/23/16 10:13 Dose: 1 tab - Labs Labs: PT 12.5 SECONDS (9.7-12.2) H 10/19/16 09:54 INR 1.1 10/19/16 09:54 APTT 34 SECONDS (21-34) 10/19/16 09:54 - Constitutional Appears: Well - Head Exam Head Exam: ATRAUMATIC, NORMAL INSPECTION, NORMOCEPHALIC - Eye Exam Eye Exam: EOMI, Normal appearance, PERRL Pupil Exam: NORMAL ACCOMODATION, PERRL - ENT Exam ENT Exam: Mucous Membranes Moist, Normal Exam - Neck Exam Neck Exam: Full ROM, Normal Inspection. absent: Lymphadenopathy - Respiratory Exam Respiratory Exam: Decreased Breath Sounds - Cardiovascular Exam Cardiovascular Exam: REGULAR RHYTHM, +S1, +S2 - GI/Abdominal Exam GI & Abdominal Exam: Soft, Diminished Bowel Sounds - Rectal Exam Rectal Exam: Deferred
--- NOTE | 2016-10-23 15:57 | PCM.HF ---
Heart Failure Core Measure - Heart Failure Ejection Fraction: Less Than 40 % (EF 20%) GINO Inhibitor Prescribed: Yes Beta-Kenneth Prescribed: Carvedilol Angiotensin II Receptor Kenneth Prescribed: No Contraindication/Reason for not providing: on gino AnticoagulationTherapy for Atrial Fibrillation/Atrialflutter: No Contraindication/Reason for not providing: no afib Aldosterone Antagonist Prescribed: No Contraindication/Reason for not providing: BP controlled with gino and BB Hydralazine Nitrate Prescribed: No Contraindication/Reason for not providing: will f/u with cardiologyst Implantable Cardioverter Defibrillator Therapy: No Contraindication/Reason for not providing: will be seen by cardiologyst in 1 week for poss ICD Cardiac Resynchronization Therapy Prescribed: No Contraindication/Reason for not providing: Not indicated - Follow up Will be discharged to: Home Follow Up Date (must be within 7 days from discharge): 11/03/16 Follow Up Time: 09:00
--- NOTE | 2016-10-23 22:59 | CP.PCM.PN ---
Subjective - Date & Time of Evaluation Date of Evaluation: 10/23/16 Time of Evaluation: 08:05 - Subjective Subjective: Patient seen and evaluated. feels good with improved symptoms and wants to go home This is a 71yo M with a PMhx of IGT, HTN, ischemic cardiomyopathy w/ CHF systolic dysfunction w/ systolic EF of 20% as per [place] [facility] [place] who is coming to the hospital after progressive shortness of breath on exertion these past few months. The patient states he used to receive medical care in [facility] at the [place], but recently started going to doctors here in [place] because his girlfriend is currently in a halfway here. He normally can walk 10-12 blocks, and up 2-3 flights of stairs without getting short of breath but has been becoming increasingly bedbound these past few months. Patient states he used to take carvedilol in [place], but has not taken it since he switched care here. He does not remember the dose. He reportedly feels "much better today and wants to go home". He denies all symptoms; no DEVI, CP, SOB, abdominal pain, N/V/D Pmhx: as above Meds: Furosemide, Atorvastatin, Lisinopril, Aspirin, Potassium Allergies: None Surgeries: Denies FamilyHx: CAD, HTN, DM Social: [place], lives in [place], lives alone independent in all IADL and ADL, normally physically capable of 10-12 blocks and 2-3 flights of stairs Review of Systems - Constitutional Constitutional: As Per HPI Past Patient History - Infectious Disease Hx of Infectious Diseases: None - Past Medical History & Family History Past Medical History?: Yes - Past Social History Smoking Status: Never Smoked - CARDIAC Hx Cardiac Disorders: Yes Hx Congestive Heart Failure: Yes Hx Hypercholesterolemia: Yes Hx Hypertension: Yes - PULMONARY Hx Respiratory Disorders: No - NEUROLOGICAL Hx Neurological Disorder: No - HEENT Hx HEENT Problems: No - RENAL Hx Chronic Kidney Disease: No - ENDOCRINE/METABOLIC Hx Endocrine Disorders: No - HEMATOLOGICAL/ONCOLOGICAL Hx Blood Disorders: No - INTEGUMENTARY Hx Dermatological Problems: No - MUSCULOSKELETAL/RHEUMATOLOGICAL Hx Musculoskeletal Disorders: No Hx Falls: No - GASTROINTESTINAL Hx Gastrointestinal Disorders: No - GENITOURINARY/GYNECOLOGICAL Hx Genitourinary Disorders: No - PSYCHIATRIC Hx Psychophysiologic Disorder: No Hx Substance Use: No - SURGICAL HISTORY Hx Surgeries: No - ANESTHESIA Hx Anesthesia: No Physical Exam - Constitutional Appears: Well - Eye Exam Eye Exam: EOMI - ENT Exam ENT Exam: Mucous Membranes Moist - Respiratory Exam Respiratory Exam: Clear to Auscultation Bilateral - Cardiovascular Exam Cardiovascular Exam: REGULAR RHYTHM - GI/Abdominal Exam GI & Abdominal Exam: Normal Bowel Sounds - Extremities Exam Extremities exam: Negative for: calf tenderness - Back Exam Back exam: absent: CVA tenderness (L), CVA tenderness (R) - Neurological Exam Neurological exam: Alert, Oriented x3 - Psychiatric Exam Psychiatric exam: Normal Affect - Skin Skin Exam: Warm Objective - Vital Signs/Intake and Output Vital Signs (last 24 hours): Temp Pulse Resp BP Pulse Ox 98 F 91 H 91 H 136/93 H 98 10/23/16 08:23 10/23/16 12:00 10/23/16 10:12 10/23/16 10:13 10/23/16 08:23 - Labs Labs: PT 12.5 SECONDS (9.7-12.2) H 10/19/16 09:54 INR 1.1 10/19/16 09:54 APTT 34 SECONDS (21-34) 10/19/16 09:54 Assessment and Plan - Assessment and Plan (Free Text) Assessment: 71yo M admitted to the hospital for acute on chronic CHF exacerbation Acute on Chronic CHF exacerbation; systolic dysfunction reported 20% EF Patient will go home on LifeVest Will f/u with me in 1 week
== END 2016-10-23 17:23 | disposition home or self-care (01) | DRG 293 ==
LOC: C.ER 08:55 → C.9E 11:28 → C.5T 18:27 → OBSVTOIN 10-21 22:59
PROVIDERS: ADMIT Internal Medicine Nephrology; ATTEND Internal Medicine Nephrology
DX: I11.0 Hypertensive heart disease with heart failure (principal); I50.23 Acute on chronic systolic (congestive) heart failure; I42.0 Dilated cardiomyopathy; E11.9 Type 2 diabetes mellitus without complications; I25.5 Ischemic cardiomyopathy; I25.10 Atherosclerotic heart disease of native coronary artery without angina pectoris; E78.5 Hyperlipidemia, unspecified; E78.00 Pure hypercholesterolemia, unspecified

== ENCOUNTER 2016-10-27 10:51 | Emergency (ER) | payer MEDICARE ==
[2016-10-27 10:51] VITALS: BMI 29.0
[2016-10-27 11:02] VITALS: BP 109/73; PULSE 77; RESP 16; TEMP 97.4; O2SAT 96
--- NOTE | 2016-10-27 12:13 | C.PDOC ---
History Of Present Illness 71 year old male who presents to the ER requesting a splint for his left arm after he was seen at [facility] yesterday and told he had an arm fracture. Patient states "they did not have splints at [place]" so they discharged him home; he does not remember having any injury or trauma. Denies weakness or numbness. Time Seen by Provider: 10/27/16 11:17 Chief Complaint (Nursing): Upper Extremity Problem/Injury History Per: Patient History/Exam Limitations: no limitations Onset/Duration Of Symptoms: Days Current Symptoms Are (Timing): Still Present Exacerbating Factor(s): Strenuous Use Of Affected Area Recent travel outside of the [place]: No Past Medical History Reviewed: Historical Data, Nursing Documentation, Vital Signs Vital Signs: Last Vital Signs Temp 97.4 F L 10/27/16 11:00 Pulse 77 10/27/16 11:00 Resp 16 10/27/16 11:00 BP 109/73 10/27/16 11:00 Pulse Ox 96 10/27/16 12:32 - Medical History PMH: CHF, HTN, Hypercholesterolemia Surgical History: No Surg Hx Family History: States: Unknown Family Hx - Social History Hx Alcohol Use: No Hx Substance Use: No - Immunization History Hx Tetanus Toxoid Vaccination: Yes Hx Influenza Vaccination: Yes Hx Pneumococcal Vaccination: Yes Review Of Systems Musculoskeletal: Positive for: Arm Pain Neurological: Negative for: Weakness, Numbness Physical Exam - Physical Exam Appears: Non-toxic, No Acute Distress Skin: Normal Color, Warm, Dry Head: Atraumatic, Normacephalic Extremity: Normal ROM (x4), Tenderness (Mild to left elbow), No Deformity, No Swelling Pulses: Left Radial: Normal, Right Radial: Normal Neurological/Psych: Oriented x3, Normal Speech, Normal Cognition ED Course And Treatment O2 Sat by Pulse Oximetry: 96 (Room air) Pulse Ox Interpretation: Normal - Other Rad Left elbow x-ray X-Ray: Interpreted by Me, Viewed By Me Interpretation: No acute fractures or dislocations. Left wrist x-ray X-Ray: Interpreted by Me, Viewed By Me Interpretation: No acute fractures or dislocations. Progress Note: Posterior long arm splint was applied by CP and checked by me. Arm spling was applied. Patient was d/c home with Ortho follow up. Disposition - Disposition Referrals: Gavin Mcconnell III, [place] [Staff Provider] - Disposition: HOME/ ROUTINE Disposition Time: 12:10 Condition: STABLE Additional Instructions: Follow up with PMD and Orthopedist within 1-2 days. Return to ED if feel worse. Prescriptions: Ibuprofen [Motrin Tab] 400 mg PO Q8 #30 tab Instructions: Arthralgia (ED) Forms: [facility] (Danish) - Clinical Impression Clinical Impression: Elbow pain - Scribe Statement The provider has reviewed the documentation as recorded by the Scribtenzin Rockwell All medical record entries made by the Scribe were at my direction and personally dictated by me. I have reviewed the chart and agree that the record accurately reflects my personal performance of the history, physical exam, medical decision making, and the department course for this patient. I have also personally directed, reviewed, and agree with the discharge instructions and disposition.
--- NOTE | 2016-10-27 14:50 | RAD ---
PROCEDURE: Left Wrist Radiographs. HISTORY: injury COMPARISON: None available. FINDINGS: BONES: No acute displaced fracture. Subchondral cysts within the scaphoid. JOINTS: No dislocation. SOFT TISSUES: Unremarkable. No evidence of radiopaque foreign body OTHER FINDINGS: None. IMPRESSION: No acute displaced fracture, dislocation, or significant joint effusion identified. If symptoms persist, or if there is continued clinical concern, x-ray follow-up in 7-10 days should be considered.
--- NOTE | 2016-10-27 14:56 | RAD ---
PROCEDURE: Radiographs of the left elbow. HISTORY: injury COMPARISON: No prior. FINDINGS: BONES: Exaggerated angle of the humeral head with the diaphysis of the humerus on lateral view of uncertain significance. No acute displaced fracture identified. JOINTS: No dislocation. SOFT TISSUES: No evidence of radiopaque foreign body. JOINT EFFUSION: Questionable hemarthrosis anteriorly. OTHER FINDINGS: None IMPRESSION: Questionable hemarthrosis anteriorly. No acute displaced fracture identified. Exaggerated angle of the humeral head with the diaphysis of the humerus on lateral view of uncertain significance. Correlate clinically. CT may be considered for further evaluation if indicated.
== END 2016-10-27 12:21 | disposition home or self-care (01) ==
LOC: C.ER 10:51
DX: S42.302D Unspecified fracture of shaft of humerus, left arm, subsequent encounter for fracture with routine healing (principal); X58.XXXD Exposure to other specified factors, subsequent encounter

== ENCOUNTER 2018-01-04 23:16 | Emergency (ER) | payer MEDICARE ==
[2018-01-04 23:16] VITALS: BMI 29.0
[2018-01-04 23:26] VITALS: RESP 16; TEMP 97.8
--- NOTE | 2018-01-05 01:15 | C.PDOC ---
History Of Present Illness 73 year old male presents to the ED for evaluation of left lower lip swelling that started few hours [employer]. Patient reports no known allergens, change in medications. Patient denies fever, chills, nausea, vomit, rash, SOB, throat itching, throat swelling. Pt reports past h/o of lisinopril use but no longer on lisinopril Time Seen by Provider: 01/04/18 23:40 Chief Complaint (Nursing): Allergic Reaction History Per: Patient History/Exam Limitations: no limitations Onset/Duration Of Symptoms: Hrs Current Symptoms Are (Timing): Still Present Context: Other Possible Cause: Unknown Associated Symptoms: Swelling Home/EMS Treatment: None Recent travel outside of the [place]: No Additional History Per: Patient Past Medical History Reviewed: Historical Data, Nursing Documentation, Vital Signs Vital Signs: Last Vital Signs Temp 97.8 F 01/04/18 23:24 Pulse 89 01/04/18 23:24 Resp 16 01/04/18 23:24 BP 122/85 01/04/18 23:24 Pulse Ox 98 01/04/18 23:24 - Medical History PMH: CHF, HTN, Hypercholesterolemia Denies: Chronic Kidney Disease Surgical History: No Surg Hx Family History: States: Unknown Family Hx - Social History Hx Alcohol Use: No Hx Substance Use: No - Immunization History Hx Tetanus Toxoid Vaccination: Yes Hx Influenza Vaccination: Yes Hx Pneumococcal Vaccination: Yes Review Of Systems Constitutional: Negative for: Fever, Chills ENT: Positive for: Mouth Swelling. Negative for: Throat Pain, Throat Swelling Respiratory: Negative for: Cough, Shortness of Breath, Wheezing Gastrointestinal: Negative for: Nausea, Vomiting Skin: Negative for: Rash Neurological: Negative for: Weakness, Numbness, Headache, Dizziness Physical Exam - Physical Exam Appears: Non-toxic, No Acute Distress Skin: Normal Color, Warm, Dry Head: Atraumatic, Normacephalic Eye(s): bilateral: Normal Inspection Ear(s): Bilateral: Normal Oral Mucosa: Moist Tongue: No Swelling Lips: Swelling (left lateral aspect lower lip) Throat: Normal, No Erythema, No Exudate Neck: Normal ROM, Supple Chest: Symmetrical Cardiovascular: Rhythm Regular Respiratory: Normal Breath Sounds, No Rales, No Rhonchi, No Wheezing Extremity: Normal ROM, No Tenderness, No Swelling Neurological/Psych: Oriented x3, Normal Speech Gait: Steady ED Course And Treatment O2 Sat by Pulse Oximetry: 98 (ON RA) Pulse Ox Interpretation: Normal Progress Note: Plan: - Benadryl 50 mg PO. - Prednisone 60 mg PO. Patient is resting comfortably, tolerating PO, has no shortness of breath, has no intra- oral swelling, no stridor. Patient notes that pruritus has improved.. Patient was advised to avoid potential allergens, and to follow up with physician in 1-2 days. Disposition - Disposition Referrals: Vidal Bro MD [Staff Provider] - Disposition: HOME/ ROUTINE Disposition Time: 01:36 Condition: STABLE Additional Instructions: Take benadryl every 6hrs Take meds as directed Return to ER if worse Prescriptions: predniSONE [Prednisone] 40 mg PO DAILY #8 tab Instructions: Angioedema (DC) Forms: [employer] (Angolan) - Clinical Impression Clinical Impression: Angioedema - PA / RIB PULLER / Resident Statement MD/DO has reviewed & agrees with the documentation as recorded. - Scribe Statement The provider has reviewed the documentation as recorded by the Scribe Julito Bartholomew All medical record entries made by the Scribe were at my direction and personally dictated by me. I have reviewed the chart and agree that the record accurately reflects my personal performance of the history, physical exam, medical decision making, and the department course for this patient. I have also personally directed, reviewed, and agree with the discharge instructions and disposition.
[2018-01-05 01:32] VITALS: BP 120/83; PULSE 40
[2018-01-05 01:38] VITALS: O2SAT 98
== END 2018-01-05 01:41 | disposition home or self-care (01) ==
LOC: C.ER 23:16
DX: T78.3XXA Angioneurotic edema, initial encounter (principal)